=== PATIENT | female | born 1970 | race Caucasian/White ===

== ENCOUNTER 2019-01-04 17:02 | Emergency (ER) | payer BC, OTHER ==
[2019-01-04 17:19] VITALS: BP 132/84; PULSE 75; TEMP 98.7; BMI 34.4
--- NOTE | 2019-01-04 17:28 | PDOC ---
History of Present Illness - General Chief Complaint: Pain Stated Complaint: DVT Time Seen by Provider: 01/04/19 17:10 - History of Present Illness Initial Comments: 01/04/19 17:28 48y/o F with hx of clots (2004) not currently on anti-coagulation, presents to ED with 1 day of left leg pain. The pain is throbbing in her calf 10/10 in severity up to her knee and down to her ankle. She denies any trauma or recent falls. The pain is better with sitting and worse with standing or attempts to walk. She was last on anticoagualation (coumadin) in 2006 and has had no clots since then. She endorses shortness of breath, and headaches. She denies chest pain, palpitations, recent long periods of immobility (travel/surgery), pleuritic chest pain, fevers, chills, hormone use, current OCP use, nausea, vomiting, diarrhea. 01/04/19 18:36 Past History - Past Medical History Allergies/Adverse Reactions: Allergies Allergy/AdvReac Type Severity Reaction Status Date / Time APPLE JUICE Allergy Mild Rash Uncoded 01/04/19 17:04 Home Medications: Ambulatory Orders NK [No Known Home Medication] 01/04/19 Review of Systems - Review of Systems Constitutional: No: Chills, Fever HEENTM: No: Eye Pain, Blurred Vision Respiratory: Yes: Shortness of Breath. No: Cough Cardiac (ROS): No: Chest Pain ABD/GI: No: Abdominal cramping : No: Burning, Dysuria Neurological: Yes: Headache. No: Dizziness *Physical Exam - Physical Exam General Appearance: Yes: Nourished, Appropriately Dressed, Mild Distress HEENT: positive: Normal Voice. negative: Scleral Icterus (R), Scleral Icterus ( L) Neck: positive: Trachea midline, Supple. negative: Tender Respiratory/Chest: positive: Chest Tender, Lungs Clear, Normal Breath Sounds. negative: Respiratory Distress, Accessory Muscle Use, Labored Respiration, Rapid RR, Decreased Breath Sounds Cardiovascular: positive: Regular Rhythm, Regular Rate, S1, S2. negative: Edema , JVD Vascular Pulses: Dorsalis-Pedis (R): 2+, Doralis-Pedis (L): 2+ Gastrointestinal/Abdominal: positive: Normal Bowel Sounds, Soft. negative: Pulsatile Mass, Distended, Guarding, Rebound, Tenderness Musculoskeletal: positive: Normal Inspection. negative: CVA Tenderness, CVA Tenderness (R), CVA Tenderness (L) Extremity: positive: Normal Capillary Refill, Normal Inspection, Normal Range of Motion, Calf Tenderness, Other (homans sign +). negative: Coldness, Cyanosis , Pedal Edema Integumentary: positive: Normal Color, Dry, Warm. negative: Cyanotic, Erythema , Pale, Cold, Clammy, Diaphoresis, Rash Neurologic: positive: Fully Oriented, Alert, Normal Mood/Affect, Normal Response ED Treatment Course - LABORATORY CBC & Chemistry Diagram: 01/04/19 18:05 01/04/19 18:05 Medical Decision Making - Medical Decision Making 01/04/19 18:37 48y/o F with hx of clots (2004) not currently on anti-coagulation, presents to ED with 1 day of left leg pain. Labs/Imaging/Meds: cbc, cmp, Duplex Vascular U/S 01/04/19 18:41 U/S No evidence of DVT within the common, deep and superficial femoral veins as well as the popliteal and posterior tibial veins. The greater saphenous vein is also patent. These veins are fully compressible as well. 01/04/19 18:55 Discharge home with follow up with pcp. Instructed to return if symptoms did not resolve with rest and over the counter pain meds. 01/08/19 00:01 *DC/Admit/Observation/Transfer Diagnosis at time of Disposition: Pain of left calf - Discharge Dispostion Disposition: HOME Condition at time of disposition: Good Decision to Admit order: No - Referrals Referrals: Osman Goldstein MD [Primary Care Provider] - - Patient Instructions Printed Discharge Instructions: DI for Leg Pain Additional Instructions: You were evaluated in the ER today for a possible clot in your left leg. An ultrasound of the leg was done and showed no such clot. Follow up with your primary care doctor within the next week. you can use over the counter meds. like tylenol or Ibuprofen for pain as directed on medications. Walking and light exercise is encouraged - please increase activity as tolerated. If you develop new leg pain, swelling, and/or redness contact your doctor. If you develop new chest pain with difficulty breathing, fevers,a rapid heart rate and/or a feeling like 'passing out' please call emergency services immediately - Post Discharge Activity
--- NOTE | 2019-01-04 17:58 | PDOC ---
Attending Attestation - Resident Resident Name: Katlin Torres - ED Attending Attestation I have performed the following: I have examined & evaluated the patient, The case was reviewed & discussed with the resident, I agree w/resident's findings & plan - HPI HPI: 01/04/19 17:53 48 YOF with h/o scoliosis, provoked DVT not on AC any longer presenting with left lower calf and leg pain/swelling since this morning after waking up. no paresthesias, weakness no trauma or falls h/o DVT provoked by trauma in 2004 x 6 months of AC - Physicial Exam PE: 01/04/19 17:54 General: NAD, well appearing Resp: no respiratory distress, breathing comfortably, full sentences. Abdomen: soft, no tenderness, nondistended Vascular: 2+ DP pulses symmetric and equal. Back: nontender, FROM MSK: notable for soft compartments, Cap refill <2 sec. 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 Plantar flexion and dorsiflexion 5/5. FROM. Sensation grossly intact to light touch. +left calf tenderness. Neuro: alert Skin: color normal color, warm and well perfused. Cap refill <2 sec. - Medical Decision Making 01/04/19 17:55 hpi as documented VS reviewed, wnl Vital Signs Temp Pulse Resp BP Pulse Ox 98.7 F 75 15 132/84 100 01/04/19 17:04 01/04/19 17:04 01/04/19 17:04 01/04/19 17:04 01/04/19 17:04 DDx extremity pain: Sprain, contusion, extremity fracture, DVT, superficial thrombophlebitis, hematoma. Low suspicion for compartment syndrome, NVI and no neuro deficits. low suspicion for vascular abnormality or infection. VS reviewed, wnl/ labs wnl, Cr function wnl. ambulatory Duplex_neg for DVT, however if sx persist in 1 week, repeat duplex indicated Discussed results with patient. Rest ice and elevation. Pain control with OTC meds including motrin/tylenol as needed every 6 hours; no narcotics needed. WBAT. Please return to ED for increased pain, weakness, numbness/tingling, fever, or redness. 01/04/19 18:42 01/05/19 19:34
[2019-01-04 18:24] LABS: BASO % 0.7 % (0-2.0); EOS % 2.1 % (0-4.5); HEMATOCRIT 40.5 % (32.4-45.2); HEMOGLOBIN 13.7 GM/dl (10.7-15.3); LYMPH % 45.2 % (8-40); MCHC 33.8 g/dl (32.0-36.0); MEAN CELL VOLUME 91.7 fl (80-96); MONO % 5.1 % (3.8-10.2); NEUT % 46.9 % (42.8-82.8); PLATELET COUNT 208 K/MM3 (134-434); RBC 4.41 M/mm3 (3.60-5.2); RDW 12.5 % (11.6-15.6); WHITE BLOOD COUNT 7.6 K/mm3 (4.0-10.8)
[2019-01-04 18:37] LABS: BILIRUBIN,TOTAL 1.1 mg/dl (0.2-1); CALCIUM 8.6 mg/dl (8.5-10); CREATININE 0.8 mg/dl (0.55-1.3); POTASSIUM 4.4 mmol/L (3.5-5.1); TOT PROT 7.1 g/dl (6.4-8.2)
== END 2019-01-04 19:05 | disposition home or self-care (01) ==
LOC: FER 17:02
DX: M79.662 Pain in left lower leg (principal)
CPT/HCPCS: 36415; 80053; 85025; 93971-TC; 99282-25

== ENCOUNTER 2023-12-16 19:48 | Emergency (ER) | payer BC, OTHER ==
[2023-12-16 20:01] VITALS: BP 129/80; PULSE 78; RESP 18; TEMP 98.4; BMI 31.6
[2023-12-16] MEDS ORDERED: IBUPROFEN 600 MG TABLET (FP) PO ONE (20:38)
[2023-12-16] MEDS: IBUPROFEN 600 MG TABLET (FP) PO ONE (20:39)
== END 2023-12-16 22:01 | disposition home or self-care (01) ==
LOC: FER 19:48
DX: S43.401A Unspecified sprain of right shoulder joint, initial encounter (principal); X50.1XXA Overexertion from prolonged static or awkward postures, initial encounter
CPT/HCPCS: 73030-TC-RT-FY; 99283-25

== ENCOUNTER 2023-12-29 04:57 | Day surgery (SDC) | payer BC, OTHER ==
[2023-12-27 11:07] VITALS: BMI 31.1
[2023-12-29 08:12] VITALS: RESP 18
[2023-12-29 09:27] VITALS: TEMP 98.1
[2023-12-29 10:16] VITALS: BP 96/61; PULSE 68
== END 2023-12-29 10:05 | disposition home or self-care (01) ==
LOC: JASU-ENDO 04:57
PROVIDERS: ATTEND Internal Medicine Gastroenterology
PROC: 0DB98ZX Excision of Duodenum, Via Natural or Artificial Opening Endoscopic, Diagnostic (ICD-10-PCS; 2023-12-29)
PROC: 0DB68ZX Excision of Stomach, Via Natural or Artificial Opening Endoscopic, Diagnostic (ICD-10-PCS; 2023-12-29)
PROC: 0DBC8ZX Excision of Ileocecal Valve, Via Natural or Artificial Opening Endoscopic, Diagnostic (ICD-10-PCS; principal; 2023-12-29 09:00)
DX: Z12.11 Encounter for screening for malignant neoplasm of colon (principal); D12.0 Benign neoplasm of cecum; K29.50 Unspecified chronic gastritis without bleeding; B96.81 Helicobacter pylori [H. pylori] as the cause of diseases classified elsewhere; Z83.719 Family history of colon polyps, unspecified
CPT/HCPCS: 88305-TC; 88342-TC

== ENCOUNTER 2024-03-02 15:57 | Emergency (ER) | payer BC, OTHER ==
[2024-03-02 17:15] LABS: EPITHELIAL CELLS 0-5 /hpf
[2024-03-02 19:36] VITALS: BP 114/78; PULSE 62; RESP 18; TEMP 98.6; BMI 31.6
== END 2024-03-02 19:55 | disposition home or self-care (01) ==
LOC: FER 15:57
DX: R10.31 Right lower quadrant pain (principal)
CPT/HCPCS: 74176-TC; 81003; 81015; 87086; 99284-25